=== PATIENT | female | born 1975 | race Caucasian/White ===

== ENCOUNTER 2019-01-10 11:49 | Emergency (ER) | payer SELFPAY ==
[2019-01-10] MEDS ORDERED: Ondansetron ODT TAB* 4 MG PO ONE (14:44)
--- NOTE | 2019-01-10 14:54 | UC ---
Abdominal Pain Female HPI - HPI Summary HPI Summary: 43 y/o female presents to the urgent care c/o RUQ abdominal pain w/ diarrhea and N/V since Sunday01/08/2019. Pt reports mild cramping pain started and then diarrhea developed. Pain is intermittent and radiating to her back pt having stomach cramps on the right upper abd, radiating to her back, diarrhea , vomiting, starting sunday, and is having a hard time keeping food down. pt has been drinking fluids. pt states [place] in [place]. unsure if she has been febrile. - History of Current Complaint Chief Complaint: UCGI Stated Complaint: VOMITTING/STOMACH Time Seen by Provider: 01/10/19 14:16 Hx Obtained From: Patient Hx Last Menstrual Period: 01/10/19 ?: No - w/ her period now Onset/Duration: Gradual Onset, Lasting Days - 3 days, Still Present, Worse Since - today Timing: Intermittent Episodes Lasting: Severity Initially: Mild Severity Currently: Moderate Pain Intensity: 5 Pain Scale Used: 0-10 Numeric Location: Discrete At: RUQ, Epigastric Radiates: No Allergies/Adverse Reactions: Allergies Allergy/AdvReac Type Severity Reaction Status Date / Time latex Allergy Rash Verified 01/10/19 12:06 Home Medications: Home Medications Loperamide CAP* [Imodium CAP*] 1 tab PO ONCE PRN 01/10/19 [History Confirmed 11/24] PMH/Surg Hx/FS Hx/Imm Hx - Surgical History Surgical History: Yes Surgery Procedure, Year, and Place: tubal ligation. T&A - Social History Alcohol Use: Occasionally Substance Use Type: None Smoking Status (MU): Light Every Day Tobacco Smoker Amount Used/How Often: 5 cig/day Household Exposure Type: Cigarettes Physical Exam - Summary Physical Exam Summary: Vital Signs Reviewed: Yes General:Patient is a well developed and nourished female who is sitting comfortable in the examining table. Patient is not in any acute respiratory distress. Eyes: Positive: Conjunctiva Clear - PERRLA, EOMI, fundi grossly normal ENT: Positive: Normal ENT inspection, Hearing grossly normal, Pharynx normal, TMs normal Neck: Positive: Supple, Nontender, No Lymphadenopathy Respiratory: Positive: Chest non-tender, Lungs clear, Normal breath sounds, No respiratory distress Cardiovascular: Positive: RRR,S1 and S2 present, No Murmur, Pulses Normal, Brisk Capillary Refill Abdomen Description: Positive: Abd: Flat with no distention. No surface trauma , scars, incisions. hyperactive bowel sounds present in all four quadrants. tenderness to palpation of RUQ, no guarding, no rigidity to palpation. No masses palpated, no pulsation in epigastric area. No organomegaly. Positive [place] signs. No periumbilical tenderness. No rebound in the lower quadrants. NT over [place] point. Good femoral pulses bilaterally. No hernia noted. RT CVAT mild, No LF CVAT bilaterally Musculoskeletal: Positive: Strength Intact, ROM Intact, No Edema,FROM in all major joints, no edema, no cyanosis or clubbing. Neuro: Alert and oriented x 3. No acute neurological deficits. Speech is normal. Psychological: WNL Skin: Dry and warm Triage Information Reviewed: Yes Vital Signs: Initial Vital Signs Temp 98.9 F 01/10/19 11:59 Pulse 97 01/10/19 11:59 Resp 19 01/10/19 11:59 BP 123/66 01/10/19 11:59 Pulse Ox 98 01/10/19 11:59 Abd Pain Female Course/Dx - Differential Dx/Diagnosis Differential Diagnosis: Appendicitis, Gall Bladder Disease, Pelvic Inflammatory Disease, Peptic Ulcer Disease, Renal Colic Provider Diagnosis: Right upper quadrant abdominal pain, Gastroenteritis, Nausea and vomiting Discharge - Sign-Out/Discharge Documenting (check all that apply): Patient Departure All imaging exams completed and their final reports reviewed: Yes - Discharge Plan Condition: Stable Disposition: HOME-RECOMMEND TO ED Patient Education Materials: Gastroenteritis (ED), Acute Nausea and Vomiting ( ED) Forms: *Work Release Referrals: Shani Herrera [Primary Care Provider] - 2 Days Additional Instructions: 1- Please increase fluid intake w/ Pedialyte or Gatorade. eat soft meals and avoid strenuous exercise and rest 2-If Diarrhea worsens please take Imodium PO. Take Zofran PO as directed to alleviate N/V. 3- Gall bladder US was negative. 4-Please bring back the stool kit to sent to the lab to r/o any abnormality. 5-Please take ibuprofen PO q6-8hrs prn as instructed after meals to alleviate pain and swelling. Increase fluid intake, eat well, rest and avoid strenuous exercise 6- If you develops fever or abdominal pain w/ recurrent episodes of diarrhea, N /V please go to the ER, otherwise f/u with your PCP if diarrhea not resolving in 2-3 days - Billing Disposition and Condition Condition: STABLE Disposition: Home-Recommend to ED
== END 2019-01-10 17:03 | disposition home health service (06) ==
LOC: UCEAST 11:49
DX: R10.11 Right upper quadrant pain (principal); K52.9 Noninfective gastroenteritis and colitis, unspecified; R11.2 Nausea with vomiting, unspecified; F17.210 Nicotine dependence, cigarettes, uncomplicated
CPT/HCPCS: 76705; 81003; 99202; A9270-GY; G0463